=== PATIENT | male | born 1955 | race Caucasian/White ===

== ENCOUNTER 2017-02-19 11:48 | Emergency (ER) | payer BC ==
[~2017-02-19] VITALS: Ht 193 cm; Wt 99.8 kg
[2017-02-19 12:00] VITALS: BP_SYST 139
--- NOTE | 2017-02-19 13:25 | NUR ---
SEEN IN TRIAGE ROOM BY RPG PROGRAMMER ANALYST MONTENEGRO
--- NOTE | 2017-02-19 13:35 | NUR ---
Patient, awake, alert and oriented x 4, BIB daughter from home for laceration to left lower extermity. Patient presented 3 cm laceration to left lower extermity. Patient states "I was demoing a bathroom and a box of tiles I was carrying fell onto my left leg.Now I have this cut." Bleed controlled. No signs of distress, vss noted. Denies chills, fever, shortness of breath and chest pain at this time. No other complaints/injuries per patient, none noted.
--- NOTE | 2017-02-19 13:40 | NUR ---
[place] Burns NP at bedside examining patient. New orders received. Laceration repair kit at bedside.Florida Burns NP made aware.
[2017-02-19] MEDS ORDERED: LIDOCAINE/EPI 2% 1:100000 20 ML VIAL IJ ONE (14:00)
[2017-02-19] MEDS ORDERED: IBUPROFEN 800 MG TABLET PO ONE (14:00)
[2017-02-19] MEDS ORDERED: BACITRACIN 1 GM OINT TP ONE (14:00)
[2017-02-19] MEDS ORDERED: DIPH-TET-PERTUS Vaccine 0.5 ML VIAL (ADACEL) IM ONE (14:00)
[2017-02-19] MEDS ORDERED: LIDOCAINE/EPI 1% 1:100000 20 ML VIAL INJ ONE (14:50)
--- NOTE | 2017-02-19 15:03 | NUR ---
Florida Burns, [employer] SORTER CLERK at bedside for laceration repair to left lower extermity. No bleed noted. Patient tolerated well. No signs of distress, vss noted.
[2017-02-19 15:39] VITALS: BP_SYST 130
--- NOTE | 2017-02-19 15:39 | NUR ---
Patient given written and verbal discharge instructions and verbalizes understanding. ER MD discussed with patient the results and treatment provided. Patient in stable condition. ID arm band removed. IV catheter removed intact and dressing applied, no active bleeding. Rx of Motrin and Bacitracin given. Patient educated on pain management and to follow up with PMD. Pain Scale 0/10. Opportunity for questions provided and answered.
== END 2017-02-19 15:39 | disposition home or self-care (01) ==
LOC: SED 11:48
DX: S81.812A Laceration without foreign body, left lower leg, initial encounter (principal); J03.90 Acute tonsillitis, unspecified; I10 Essential (primary) hypertension; W45.8XXA Other foreign body or object entering through skin, initial encounter; Y93.89 Activity, other specified; Y92.89 Other specified places as the place of occurrence of the external cause; Y99.8 Other external cause status
CPT/HCPCS: 90715; 99283